=== PATIENT | female | born 1995 | race Caucasian/White ===

== ENCOUNTER → 2020-07-14 15:22 | Outpatient (CLI) | payer SELFPAY | PROVIDERS: Referring Provider Obstetrics & Gynecology; Visit Provider Obstetrics & Gynecology | DX: Z34.90 Encounter for supervision of normal pregnancy, unspecified, unspecified trimester (principal) | CPT/HCPCS: 36415; 84702 ==

== ENCOUNTER → 2020-07-20 14:33 | Outpatient (CLI) | payer MEDICAID, SELFPAY ==
--- NOTE | 2020-07-20 14:36 | US_ITS ---
STUDY: FIRST TRIMESTER OBSTETRICAL ULTRASOUND REASON FOR EXAM: Female, 25 years old INITIAL ULTRASOUND -- DATING LMP: 05/18/2020. TECHNIQUE: Transvaginal TECHNICAL QUALITY: Adequate. PRIOR ULTRASOUND: None. FINDINGS: There is visualization of a single gestational sac in a normal intrauterine position. There is a visualized yolk sac. The yolk sac measures 4.2 mm. The placenta is non-visualized. There is visualization of a live embryo. The crown-rump length (CRL) measures 2.68 cm, indicating an estimated gestational age (EGA) of 9 weeks, 1 days. There is demonstrated cardiac activity with a heart rate of 169 bpm. The estimated gestation age (EGA) by LMP is 9 weeks, 0 days. The estimated date of delivery (LATOSHA) by LMP is 02/22/2021. The estimated gestation age (EGA) by US is 9 weeks, 1 days. The estimated date of delivery (LATOSHA) by US is 02/23/2021. The uterus measures 11.4 cm x 9.2 cm x 7 cm. There is a 2 cm x 2 cm by 1.1 cm subchorionic hematoma. There is no demonstrated uterine fibroid. The cervix is closed. The right ovary measures 4.3 cm x 4.4 cm x 2.5 cm. There is a 1.8 cm x 2.1 cm x 1.7 cm right ovarian cyst. There is no visualized right adnexal mass or complex lesion. The left ovary measures 7.2 cm x 6.3 cm x 5.3 cm. There is a 4.7 cm x 5.9 cm x 4.6 cm ovarian cyst. There is no visualized left adnexal mass or complex lesion. There is minimal fluid in the cul de sac. US/Init OB < 14Wks US IMPRESSION: Single live intrauterine gestation with a mean gestational age of 9 weeks and 1 day. Small subchorionic hematoma. Bilateral ovarian cysts more prominent on the left side. Electronically Signed: Reji Eastman, at 13:58 EDT , Service support ,
== END ==
PROVIDERS: Referring Provider Nurse Practitioner Women's Health; Visit Provider Nurse Practitioner Women's Health
DX: Z34.90 Encounter for supervision of normal pregnancy, unspecified, unspecified trimester (principal)
CPT/HCPCS: 76801

== ENCOUNTER → 2020-07-27 16:23 | Outpatient (CLI) | payer MEDICAID, SELFPAY ==
[2020-07-27 10:29] VITALS: BMI 32.1
[2020-07-27 17:14] LABS: Amphetamine Urine VISTA NEGATIVE (<1000 ng/mL); Barbiturate Urine VISTA NEGATIVE (< 200 ng/mL); Benzodiazepine Urine VISTA NEGATIVE (< 200 ng/mL); Cocaine Urine VISTA NEGATIVE (< 300 ng/mL); Ecstacy Urine VISTA NEGATIVE (< 500 ng/mL); Methadone Urine VISTA NEGATIVE (< 300 ng/mL); PCP Urine VISTA NEGATIVE (< 25 ng/mL); THC Urine VISTA NEGATIVE (< 50 ng/mL); Vista UDS pH Range 6
[2020-07-30 03:06] LABS: Chlamydia By Nucleic Acid AMP Negative (Negative)
[2020-07-30 06:27] LABS: Gonococcus By Nucleic Acid AMP Negative (Negative)
[2020-08-01 10:35] LABS: HPV Reflexed? NOT INDICATED
== END ==
PROVIDERS: Visit Provider Obstetrics & Gynecology
DX: Z34.00 Encounter for supervision of normal first pregnancy, unspecified trimester (principal)
CPT/HCPCS: 80307; 87086; 87088; 87491; 87591; 88175; G0145

== ENCOUNTER → 2020-08-25 14:49 | Outpatient (CLI) | payer MEDICAID, SELFPAY ==
[2020-08-23 14:01] VITALS: BMI 31.8
[2020-08-25 15:27] LABS: Absolute Lymphocyte Count 1.31 X10^3/uL (0.83-4.51); Absolute Neutrophil Count 4.4 X10^3/uL (2.0-7.7); Basophil# 0.01 X10^3/uL; Basophil% 0.2 % (0-1); Eosinophil# 0.07 X10^3/uL; Eosinophils% 1.1 % (0-5); Hemoglobin 10.2 g/dL (12.0-15.0); Lymphocyte # 1.31 X10^3/ul (4.0); Lymphocyte % 21.1 % (19-41); Mean Corp Hgb Conc 32.9 g/dL (32-36); Mean Corpuscular Hgb 28.7 pg (27.0-32.0); Mean Corpuscular Volume 87.3 fL (81-99); Mean Platelet Vol. 10.3 fl (6.2-12.0); Monocyte# 0.39 X10^3/uL; Monocyte% 6.3 % (0-10); NRBC Flagged by Analyzer 0 % (0-5); Neutrophil % 70.8 % (47-70); Platelet Count 225 K/mm3 (150-450); Red Blood Count 3.55 M/mm3 (4.2-5.4); White Blood Count 6.2 K/mm3 (4.4-11.0)
[2020-08-25 15:42] LABS: Glucose Challenge Gest 1H 50g 91 mg/dL (70-140)
[2020-08-25 17:26] LABS: NATERA MAILED SPECIMEN
[2020-08-26 05:07] LABS: Rapid Plasmin Reagin (RPR) NONREACTIVE (NONREACTIVE)
[2020-08-27 13:39] LABS: HIV - WCH Non-Reactive (Nonreactive); Hepatitis B Surface Antigen Non-Reactive (Nonreactive); Hepatitis C Antibody Non-Reactive (Nonreactive)
== END ==
PROVIDERS: Referring Provider Obstetrics & Gynecology; Visit Provider Obstetrics & Gynecology
DX: Z34.81 Encounter for supervision of other normal pregnancy, first trimester (principal); Z31.430 Encounter of female for testing for genetic disease carrier status for procreative management
CPT/HCPCS: 36415; 82950; 85025; 86592; 86703; 86803; 86850; 86900; 86901; 87340

== ENCOUNTER → 2020-09-20 14:58 | Outpatient (CLI) | payer MEDICAID, SELFPAY ==
[2020-09-20 14:37] VITALS: BMI 33.0
== END ==
PROVIDERS: Referring Provider Obstetrics & Gynecology; Visit Provider Obstetrics & Gynecology
DX: Z36.9 Encounter for antenatal screening, unspecified (principal)
CPT/HCPCS: 36415

== ENCOUNTER → 2020-12-01 13:00 | Outpatient (CLI) | payer MEDICAID, SELFPAY ==
[2020-11-19 15:20] VITALS: BMI 35.4
[2020-12-01 13:11] LABS: Absolute Lymphocyte Count 1.35 X10^3/uL (0.83-4.51); Absolute Neutrophil Count 6.2 X10^3/uL (2.0-7.7); Basophil# 0.02 X10^3/uL; Basophil% 0.2 % (0-1); Eosinophils% 1.2 % (0-5); Hematocrit 30.8 % (37-47); Lymphocyte # 1.35 X10^3/ul (4.0); Lymphocyte % 16.5 % (19-41); Mean Corp Hgb Conc 32.5 g/dL (32-36); Mean Corpuscular Hgb 28.1 pg (27.0-32.0); Mean Corpuscular Volume 86.5 fL (81-99); Mean Platelet Vol. 9.8 fl (6.2-12.0); Monocyte# 0.46 X10^3/uL; Monocyte% 5.6 % (0-10); NRBC Flagged by Analyzer 0 % (0-5); Neutrophil # 6.16 X10^3/uL (2.7-7.7); Neutrophil % 75.4 % (47-70); Platelet Count 207 K/mm3 (150-450); RBC Distribution Width CV 13.2 % (11.6-14.6); Red Blood Count 3.56 M/mm3 (4.2-5.4); White Blood Count 8.2 K/mm3 (4.4-11.0)
[2020-12-01 13:22] LABS: Glucose Challenge Gest 1H 50g 129 mg/dL (70-140)
== END ==
PROVIDERS: Referring Provider Obstetrics & Gynecology; Visit Provider Obstetrics & Gynecology
DX: Z13.1 Encounter for screening for diabetes mellitus (principal); Z34.90 Encounter for supervision of normal pregnancy, unspecified, unspecified trimester
CPT/HCPCS: 36415; 82950; 85025

== ENCOUNTER → 2021-01-28 12:29 | Outpatient (CLI) | payer MEDICAID, SELFPAY ==
[2021-01-14 13:44] VITALS: BMI 35.6
--- NOTE | 2021-01-28 12:30 | US_ITS ---
STUDY: SECOND AND THIRD TRIMESTER OBSTETRICAL ULTRASOUND REASON FOR EXAM: Female, 25 years old growth LMP: 05/18/2020. TECHNIQUE: Transabdominal TECHNICAL QUALITY: Adequate. PRIOR ULTRASOUND: Comparison is made with prior study dated 05/20/2020. FINDINGS: There is a single intrauterine fetus. The fetus is in a cephalic presentation. There is demonstrated cardiac activity with a heart rate of 132 bpm. There is a normal amniotic fluid volume. The largest amniotic fluid pocket measures 4.4 cm. The amniotic fluid index (WESLEY) is 11.3 cm. The placenta is fundal in location. There are Grade 1 placental changes. The adnexal regions are not visualized. BIOMETRY: BPD: 9.65 cm: 39 weeks, 3 days HC: 33.92 cm: 38 weeks, 6 days AC: 34.49 cm: 38 weeks, 2 days FL: 7.26 cm: 36 weeks, 1 days CI: 85% FL/BPD: 75% FL/HC: FL/AC: 21% HC/AC: 0.98 age by current US: 38 weeks, 2 days. LATOSHA by current US: 02/09/2021. Estimated weight: 3490 grams, +/- 524 grams, 93 %. age by prior US: 36 weeks, 2 days. LATOSHA by prior US: 02/23/2021. Age by LMP: 36 weeks, 3 days. LATOSHA by LMP: 02/22/2021. The left ovary measures 6.5 cm x 3.9 cm within it, there is a 3.9 cm x 3.7 cm x 3.1 cm cyst. Along the cephalic aspect of the cystic nodule there is a 3.9 cm x 3.6 cm x 3 cm solid nodule. US/OB Limited With Biometrics IMPRESSION: Single live uterine gestation with a mean gestational age of 36 weeks and 2 days. The measurements obtained today follow-up in the upper limits of normal. Electronically Signed: Reji Eastman MD at 8:32 EDT , Service support ,
== END ==
PROVIDERS: Referring Provider Obstetrics & Gynecology; Visit Provider Obstetrics & Gynecology
DX: O99.213 Obesity complicating pregnancy, third trimester (principal); E66.9 Obesity, unspecified; Z3A.33 33 weeks gestation of pregnancy
CPT/HCPCS: 76816; 87081

== ENCOUNTER → 2021-02-25 15:02 | Outpatient (CLI) | payer MEDICAID, SELFPAY ==
[2021-02-25 10:58] VITALS: BMI 35.6
[2021-02-26 11:02] LABS: Rubella IgG Reactive (Nonreactive)
== END ==
PROVIDERS: Referring Provider Obstetrics & Gynecology; Visit Provider Obstetrics & Gynecology
DX: Z34.92 Encounter for supervision of normal pregnancy, unspecified, second trimester (principal); Z3A.19 19 weeks gestation of pregnancy
CPT/HCPCS: 36415; 86762

== ENCOUNTER 2021-02-27 19:00 | Inpatient (IN) | payer MEDICAID, SELFPAY ==
[2021-02-11 14:01] VITALS: BMI 35.6
[2021-02-25 10:58] VITALS: BMI 35.6
[2021-02-27 19:25] VITALS: PULSE 104; TEMP 36.8; O2SAT 99
[2021-02-27 19:28] VITALS: BP 120/69; PULSE 112
[2021-02-27 19:44] LABS: Absolute Lymphocyte Count 1.58 X10^3/uL (0.83-4.51); Absolute Neutrophil Count 7.3 X10^3/uL (2.0-7.7); Basophil# 0.02 X10^3/uL; Basophil% 0.2 % (0-1); Eosinophil# 0.09 X10^3/uL; Eosinophils% 0.9 % (0-5); Hematocrit 34.8 % (37-47); Hemoglobin 11.4 g/dL (12.0-15.0); Lymphocyte # 1.58 X10^3/ul (0.83-4.51); Lymphocyte % 16.1 % (19-41); Mean Corp Hgb Conc 32.8 g/dL (32-36); Mean Corpuscular Hgb 27.9 pg (27.0-32.0); Mean Corpuscular Volume 85.1 fL (81-99); Mean Platelet Vol. 10.6 fl (6.2-12.0); Monocyte# 0.74 X10^3/uL; Monocyte% 7.5 % (0-10); NRBC Flagged by Analyzer 0 % (0-5); Neutrophil # 7.26 X10^3/uL (2.7-7.7); Neutrophil % 73.9 % (47-70); Platelet Count 221 K/mm3 (150-450); RBC Distribution Width CV 13.2 % (11.6-14.6); RBC Distribution Width SD 40.6 fl (35.1-43.9); Red Blood Count 4.09 M/mm3 (4.2-5.4); White Blood Count 9.8 K/mm3 (4.4-11.0)
[2021-02-27] MEDS: miSOPROStol 25 MCG TABLET PO (19:57)
[2021-02-27 19:58] VITALS: BMI 37.3
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
[2021-02-27 22:27] VITALS: BP 115/65; PULSE 91
[2021-02-27 22:28] VITALS: TEMP 36.3
[2021-02-27 23:44] VITALS: PULSE 98; O2SAT 98
[2021-02-28] VITALS (48 sets, daily range): BP systolic 94–138; BP diastolic 51–84; PULSE 74–105; RESP 16; TEMP 36.2–37.4; O2SAT 90–100
[2021-02-28] MEDS: 0.9% Normal Saline Single 100 ML IV.SOLN. INTRA-UTER (00:30)
[2021-02-28] MEDS: Lactated Ringers 500 ML 999 ML IV ×3 (01:20→14:52)
[2021-02-28] MEDS: Lactated Ringers 1,000 ML 50 ML IV (01:51)
[2021-02-28] MEDS: Oxytocin 30 units/NS 500 ml 30 UNITS/500 ML IV.SOLN IV (04:09)
--- NOTE | 2021-02-28 09:50 | PN_ITS ---
Progress Note Patient doing well. FHT Cat I. [place] not tracing well, but ~q2-4min. AROM at this time for clear fluid. Cervix 5//-2. Will continue to titrate pitocin.
[2021-02-28] MEDS: fentaNYL-bupivacaine (epidural) 100 ML BAG EPIDURAL ×3 (10:34→20:18)
[2021-02-28] MEDS: Lactated Ringers 1,000 ML 200 ML IV ×2 (12:59→18:25)
[2021-02-28] MEDS: Mag Hydrox/Al Hydrox/Simeth 30 ML UDC PO (20:42)
[2021-02-28] MEDS: 0.9% Saline Lock 10 ML Syringe IV (21:48)
--- NOTE | 2021-02-28 23:10 | PN_ITS ---
Progress Note Patient now 8 cm with inadequate contractions since 5:30 PM. Cervix noted to be significantly more swollen with extremely thick anterior lip and swelling all extending circumferentially around the cervix. Significant amount of caput and molding of head noted. Offered trial of Benadryl to help with swelling, however patient reports that this causes her to become extremely drowsy and she does not want to risk being drowsy at the time of delivery. Discussed with patient the diagnosis of arrest of dilation typically requires 6 hours of i nadequate contractions with no cervical change, however with worsening caput and molding and worsening cervical swelling would recommend proceeding with C- section at this time. Patient is agreeable with this plan. The risks, benefits, indications, and alternatives to the procedure were discussed with the patient including bleeding, infection, and visceral or vascular injury. Patient voiced understanding and agreed to proceed.
--- NOTE | 2021-02-28 23:13 | EX.PCM.OBRPT ---
Assessment & Plan (1) : QUALIFIERS: Weeks of gestation: 40 weeks Qualified Code(s): Z3A.40 - 40 weeks gestation of COMMENT: NIPT- low risk, carrier- neg , and AFP negative; NL anatomy; Negative GBS (2) Supervision of normal first : QUALIFIERS: Trimester: third trimester Qualified Code(s): Z34.03 - Encounter for supervision of normal first , third trimester COMMENT: PRR (rubella) LATOSHA: 02/22/21 corby Kumari BF: Isreal (3) Bilateral ovarian cysts: COMMENT: repeat growth us at 36 weeks. Noted on initial US. L>R measuring up to 5.9cm.; left ovarian cyst that needs a fu us 6 weeks pp (4) Obesity affecting : QUALIFIERS: Trimester: third trimester Qualified Code(s): O99.213 - Obesity complicating , third trimester COMMENT: BMI 32 at NOB. Early 1h GTT. (5) History of tetanus, diphtheria, and acellular pertussis booster vaccination (Tdap): COMMENT: 12/01/20 (6) Anemia affecting : QUALIFIERS: Trimester: third trimester Qualified Code(s): O99.013 - Anemia complicating , third trimester COMMENT: Fe daily (7) 33 weeks gestation of : COMMENT: COVID test ordered 01/05/21 ([facility] 02/18 at 2:30pm) (8) Encounter for induction of labor: (9) delivery delivered: Maternal Data Information LATOSHA Calculator Estimated Delivery Date Method Current WG Current Estimate 02/22/21 LMP (Uncertain) 41w 0d Other Estimates 02/21/21 Ultrasound #1 41w 1d Details Operative Information Date of Procedure: 02/28/21 Pre-Operative Diagnosis: Term , induction of labor for postdates, arrest of dilation, ovarian cyst Post-Operative Diagnosis: Same, cephalopelvic disproportion Indications for : Sec. Arrest of Dilitation Indications Narrative: 25-year-old G1, P0 at 40 weeks gestation admitted for induction of labor for postdates. Patient 8 cm with an adequate contractions for 5-1/2 hours with worsening cervical swelling and significant caput and molding noted. Offered trial of Benadryl to help with swelling, however patient reports that this causes her to become extremely drowsy and she does not want to risk being drowsy at the time of delivery. Discussed with patient the diagnosis of arrest of dilation typically requires 6 hours of inadequate contractions with no cervical change, however with worsening caput and molding and worsening cervical swelling would recommend proceeding with at this time Classification: JOHN Procedure Type: low transverse (With left ovarian cystectomy) floor winder #1: Yolanda Granda Type of Anesthesia: Epidural Antibiotic Given: Ancef 2 grams IV x1 and Zithromax 500 mg/5 mL X1 Drain: Mata to straight drain Estimated Blood Loss: 800 Fluids Replaced: 1200 Findings Description of Procedure: The patient is a G1, P0 at 40 weeks who presented for primary . Spinal anesthesia was placed without difficulty. Mata catheter was placed. The patient was placed in the dorsal supine position with leftward tilt. Patient was prepped and draped in the normal sterile fashion. Pfannenstiel skin incision was made with the scalpel and carried through to the underlying layer of fascia with the scalpel. Fascia was nicked in the midline and the incision extended laterally. The rectus bellies were dissected off superiorly and inferiorly with out complication both sharply and bluntly. The peritoneum was entered digitally. The incision was stretched and a low transverse uterine incision was made with the scalpel. The 's head was delivered atraumatically followed by the anterior and posterior shoulders without complication the rest of the delivered. The cord was clamped and cut and the infant was handed off to awaiting nurse. The placenta was delivered spontaneously immediately following and was noted to be intact and have a three-vessel cord. The uterus was exteriorized cleared of all clots and debris, and the incision was closed in a double layer closure using #1 Monocryl. The right ovary and fallopian tubes were noted to be within normal limits. The ovarian cyst was noted on the left ovary. The Bovie was used to make an incision in the ovarian stroma. The cyst wall was dissected from the ovarian stroma with a combination of blunt and sharp dissection. Hemostasis was achieved with the Bovie. Madeleine was placed in the ovarian cavity and hemostasis was noted. The uterus was returned to the maternal abdomen and gutters were cleared of all clots and debris. The peritoneum was closed with 3-0 Monocryl in a running fashion. Gloves were changed prior to fascial closure. Fascia was closed with 0 PDS in a running fashion. Subcutaneous tissue was copiously irrigated and the skin was closed with 3-0 Monocryl in a subcuticular fashion. Mepilex dressing was applied without complication. Patient was taken to recovery in stable condition. It was discussed with the patient that based on the clinical information obtained during this encounter, combined with her history, I would recommend a in future pregnancies unless her next baby is significantly smaller Presentation: Positive for Vertex and APRIL Amniotic Membrane Rupture Type: Artificial Amniotic Fluid Description: Clear Placenta Disposition: [facility] Specimen(s) Sent to Pathology: Left ovarian cyst wall Cord Vessel Description: 3 Vessels Cord Entanglement: None A Gender: Male Delayed Cord Clamping: Yes Complications Risks of Surgery Discussed w/Patient: Bleeding, Anesthesia Risks, Infection and Injury to surrounding structure(s) including bowel and bladder Complications: None apparent Multi Select Codes Urinary/Genital Urinary/Genital CPT Codes: 03369 Ovarian cystectomy laparotomy and 47256 delivery+ Care([facility])
--- NOTE | 2021-02-28 23:19 | PCM.DC ---
Discharge Instructions Diet Discharge Diet: No restrictions Activity Discharge Activity: May Not Drive (for 2 weeks or while taking narcotic pain meds.), May Shower and May Take a Tub Bath (in 7 days.) May resume sexual activity in: 4-6 weeks Lifting Restrictions: 20 pounds Additional Activity Instructions:: Nothing in the vagina for 4-6 weeks. You may return to work/school in 6 weeks. Dressing / Incision Call your doctor if your incision/area has: Continuous Slow Oozing, Sudden Increased Bleeding, Increased Pain/ Swelling, Increased Redness and Foul Smelling Discharge Call your doctor if you observe: Fever of 101 or Higher Suture Line Care: Avoid Pulling/Pushing and Avoid Pinching/Bending Follow Up Care Test Results: Test results from this visit will be discussed in further detail at your follow-up appointment, if applicable. Discharge Plan Admission Admit Date/Time: 02/27/21 19:00 Primary Reason for Your Visit: Induction of labor Attending Provider: Miroslava Gamboa Primary Care Provider: David PhysicianRochelle Primary Instructions Patient Instructions: After a Discharge Orders/Prescriptions Prescriptions: New naproxen 250 MG tablet 250 - 500 mg PO Q8H PRN PRN (Reason: MILD PAIN) Qty: 30 RF: 1 oxycodone 5 mg capsule 5 mg PO Q6H PRN (Reason: pain) 7 Days Qty: 15 RF: 0 Continued ferrous sulfate [Iron (ferrous sulfate)] 325 mg (65 mg iron) Tablet 325 mg PO RF: 0 [id number]-FA 1 mg Tablet 1 tab PO RF: 0 (DME) breast pump Device See Rx Instructions .ROUTE .MEDSUPPLY Qty: 1 RF: 0 Referrals / Follow Up: Care Physician,No Primary [Primary Care Provider] -
[2021-02-28] MEDS: Sodium Citrate/Citric Acid 30 ML UDC PO (23:26)
[2021-02-28] MEDS: Cefazolin 2 GM in 0.9% Normal Saline 100 ML IV (23:36)
[2021-03-01] VITALS (21 sets, daily range): BP systolic 92–122; BP diastolic 40–70; PULSE 71–111; RESP 16–18; TEMP 36.2–37.1; O2SAT 94–99
[2021-03-01] MEDS: Oxytocin 30 units/NS 500 ml 30 UNITS/500 ML IV.SOLN 167 UNITS IV (01:00)
[2021-03-01] MEDS: Ketorolac 30 MG/ML Syringe IV ×3 (01:47→14:07)
[2021-03-01] MEDS: Acetaminophen 500 MG Tablet 1000 MG PO ×4 (03:07→20:20)
--- NOTE | 2021-03-01 03:13 | POC_PTH ---
PATIENT: NEIDA WILHELM LOC: [facility] U#:[id number] AGE/SX: 25/F ROOM: WP004 RE02/27/[address]: Dr. Miroslava Gamboa MD : 1995 BED: 1 DIS: 03/02/2021 SPEC #: [id number] RECD: 03/01/21 08:42 STATUS: NAINA ALFREDO #: [id number] INDU: 03/01/21 03:[address]: Miroslava Gamboa DEPT: SURGICAL PATHOLOGY RECD BY: Arabella Frye ENTERED: 03/01/21 08:42 SP TYPE: PROD CONC OTHR DR: No Primary Care Phys Tissues: Product of conception, NOS Procedures: Surgery Specimen Level IV HEADER OPERATION: Left ovarian cystectomy PRE-OP DIAGNOSIS: Ovarian cyst TISSUE SUBMITTED: Ovarian cyst MICROSCOPIC DIAGNOSIS Left ovarian cyst, cystectomy: Consistent with mature cystic teratoma (dermoid cyst). SJ:mata 03/02/2021 MICROSCOPIC DESCRIPTION Slides are reviewed. GROSS DESCRIPTION Received is one container labeled with the patient's name and not further designated. The specimen consists of multiple irregular fragments of padron-pink soft tissue that in aggregate measure 4 x 3 x 0.7 cm. The specimen appears to consist of portion of a cyst wall. The pieces are serially sectioned. The entire specimen is submitted in three cassettes. / NIKOLE:mata 03/01/21 TC:1 CPT: 89795
[2021-03-01 03:35] LABS: Pathology Specimen OB SEE PATHOLOGY REPORT
[2021-03-01] MEDS: 0.9% Saline Lock 10 ML Syringe IV (04:28)
[2021-03-01] MEDS: Lactated Ringers 1,000 ML 999 ML IV (05:27)
--- NOTE | 2021-03-01 07:50 | PCM.PN.OB ---
Subjective Subjective Patient doing well without complaints. Tolerating PO. Ambulating and voiding without difficulty. feeding well. Denies chest pain, shortness of breath, calf pain/swelling, fevers, chills, lightheadedness. Objective Data Objective Data Vital Signs: Vital Signs Temp Pulse Resp BP Pulse Ox 98.1 F 86 16 100/60 95 03/01/21 06:04 03/01/21 05:10 03/01/21 07:30 03/01/21 06:04 03/01/21 07:30 Oxygen Delivery Method Room Air Weight: 204 lb Body Mass Index (BMI) 37.3 Intake & Output: Intake and Output for Last 24 Hours 02/27/21 02/28/21 03/01/21 23:59 23:59 23:59 Intake Total 5477.01 / 5477.01 2931.1 / 2931.1 Output Total 1900 / 1900 1200 / 1200 Balance 3577.01 / 3577.01 1731.1 / 1731.1 Lab / Micro Data Result Diagrams: 02/27/21 19:25 Micro: Microbiology 02/27/21 19:55 Mucosa - Nose SARS-CoV-2 Antigen (Rapid) - Final Physical Exam Const alert and oriented x3 HEENT normocephalic Eyes PERRL Neck full ROM Resp normal respiratory effort GI soft to palpation GI Narrative: FF below U. Dressing dry and intact Palpation: tender other (appropriately) Assessment & Plan (1) delivery delivered: PLAN: s/p LTCS PPD # 1 1. routine post care 2. breast feeding- support given 3. rh positive 4. rubella immune
[2021-03-01] MEDS: Senna/Docusate Sodium 1 Tablet PO (09:08)
[2021-03-01] MEDS: Enoxaparin 40 MG/0.4 ML Syringe SC (14:08)
[2021-03-01] MEDS: Naproxen 250 MG Tablet 500 MG PO (20:20)
[2021-03-01] MEDS: oxyCODONE 5 MG Tablet PO (23:17)
[2021-03-02 00:12] VITALS: BP 104/63; PULSE 96; RESP 17; TEMP 36.8; O2SAT 98
[2021-03-02] MEDS: Acetaminophen 500 MG Tablet 1000 MG PO ×2 (03:26→09:17)
[2021-03-02] MEDS: Naproxen 250 MG Tablet 500 MG PO (03:27)
[2021-03-02 03:35] VITALS: BP 128/64; PULSE 91; RESP 16; TEMP 36.3; O2SAT 99
[2021-03-02 05:32] LABS: Hemoglobin 9.1 g/dL (12.0-15.0); Mean Corp Hgb Conc 32.5 g/dL (32-36); Mean Corpuscular Hgb 27.9 pg (27.0-32.0); Mean Corpuscular Volume 85.9 fL (81-99); Mean Platelet Vol. 10.5 fl (6.2-12.0); Platelet Count 191 K/mm3 (150-450); RBC Distribution Width CV 13.4 % (11.6-14.6); RBC Distribution Width SD 42.1 fl (35.1-43.9); Red Blood Count 3.26 M/mm3 (4.2-5.4); White Blood Count 14.8 K/mm3 (4.4-11.0)
--- NOTE | 2021-03-02 07:49 | PCM.PN.OB ---
Subjective Subjective Patient doing well without complaints. Tolerating PO. Ambulating and voiding without difficulty. feeding well. Denies chest pain, shortness of breath, calf pain/swelling, fevers, chills, lightheadedness. Objective Data Objective Data Vital Signs: Vital Signs Temp Pulse Resp BP Pulse Ox 97.4 F L 91 16 128/64 H 99 03/02/21 03:35 03/02/21 03:35 03/02/21 03:35 03/02/21 03:35 03/02/21 03:35 Oxygen Delivery Method Room Air Weight: 204 lb Body Mass Index (BMI) 37.3 Intake & Output: Intake and Output for Last 24 Hours 02/28/21 03/01/21 03/02/21 23:59 23:59 23:59 Intake Total 5477.01 / 5477.01 3365.0 / 3365.0 Output Total 1900 / 1900 2700 / 2700 Balance 3577.01 / 3577.01 665.0 / 665.0 Lab / Micro Data Result Diagrams: 03/02/21 05:23 Labs: Laboratory Results - last 24 hr 03/02/21 05:23 WBC 14.8 H RBC 3.26 L Hgb 9.1 L Hct 28.0 L MCV 85.9 MCH 27.9 MCHC 32.5 RDW Std Deviation 42.1 RDW Coeff of [place] 13.4 Plt Count 191 MPV 10.5 Micro: Microbiology 02/27/21 19:55 Mucosa - Nose SARS-CoV-2 Antigen (Rapid) - Final Physical Exam Const alert and oriented x3 HEENT normocephalic Eyes PERRL Neck full ROM Resp normal respiratory effort GI soft to palpation GI Narrative: FF below U. Dressing dry and intact Palpation: tender other (appropriately) Assessment & Plan (1) delivery delivered: PLAN: s/p LTCS PPD # 2 1. routine post care 2. breast feeding- support given 3. rh positive 4. rubella immune 5. home today
[2021-03-02 07:53] VITALS: BP 101/58; PULSE 87; RESP 16; TEMP 36.5; O2SAT 97
[2021-03-02] MEDS: oxyCODONE 5 MG Tablet PO (09:09)
--- NOTE | 2021-03-07 07:45 | PCM.DC.SUM ---
Providers Date of Admission: 02/27/21 Primary Care Physician: Rochelle Primary Care Phys Reason For Visit: PRIMARY CSECTION Diagnosis Discharge Diagnosis (1) delivery delivered: Status: Resolved Code(s): O82 - Encounter for delivery without indication Medications at Discharge Home Medications breast pump #1 each 01/14/21 ferrous sulfate [Iron (ferrous sulfate)] 325 mg PO 02/27/21 tyddauep-yot-Md-FA 1 tab PO 02/27/21 naproxen 250 - 500 mg PO Q8H PRN PRN #30 tab 02/28/21 oxycodone 5 mg PO Q6H PRN 7 Days #15 cap 02/28/21 Hospital Course Operations section Summary of Care Provided Hospital Course: 25 yr old Grav 2/0 c section with normal hospital course. No complications. Discharged day 3 normal postop care, ambulating, reg diet, pain controlled. ABG / Lab / Microbiology Data Result Diagrams: 03/02/21 05:23 Microbiology: Microbiology 02/27/21 19:55 Mucosa - Nose SARS-CoV-2 Antigen (Rapid) - Final D/C Instructions Discharge Diet: No restrictions May resume sexual activity in: 4-6 weeks Additional Activity Instructions: Nothing in the vagina for 4-6 weeks. You may return to work/school in 6 weeks. Call your doctor if your incision/area has: Continuous Slow Oozing, Sudden Increased Bleeding, Increased Pain/ Swelling, Increased Redness and Foul Smelling Discharge Call your doctor if you observe: Fever of 101 or Higher Suture Line Care: Avoid Pulling/Pushing and Avoid Pinching/Bending Please Follow Up With: Miroslava Gamboa MD Meaningful Use Info Meaningful Use Diagnoses (Choose all that apply): None applicable Discharge Plan Admission Admit Date/Time: 02/27/21 19:00 Primary Reason for Your Visit: Induction of labor Attending Provider: Miroslava Gamboa Primary Care Provider: Care Physician,No Primary Instructions Patient Instructions: After a Discharge Orders/Prescriptions Prescriptions: New naproxen 250 MG tablet 250 - 500 mg PO Q8H PRN PRN (Reason: MILD PAIN) Qty: 30 RF: 1 oxycodone 5 mg capsule 5 mg PO Q6H PRN (Reason: pain) 7 Days Qty: 15 RF: 0 Continued ferrous sulfate [Iron (ferrous sulfate)] 325 mg (65 mg iron) Tablet 325 mg PO RF: 0 fpbqrqmo-lib-Ha-FA 1 mg Tablet 1 tab PO RF: 0 (DME) breast pump Device See Rx Instructions .ROUTE .MEDSUPPLY Qty: 1 RF: 0 Referrals / Follow Up: Care Physician,No Primary [Primary Care Provider] - Disposition Disposition (needs filled in before D/C Order can be placed): Home, self care
== END 2021-03-02 11:26 | disposition home or self-care (01) | DRG 540 ==
PROVIDERS: Admitting Provider Obstetrics & Gynecology; Visit Provider Obstetrics & Gynecology
DX: O62.0 Primary inadequate contractions (principal); O48.0 Post-term pregnancy; O99.02 Anemia complicating childbirth; D64.9 Anemia, unspecified; Z3A.40 40 weeks gestation of pregnancy; Z87.891 Personal history of nicotine dependence; Z37.0 Single live birth; O34.83 Maternal care for other abnormalities of pelvic organs, third trimester; N83.202 Unspecified ovarian cyst, left side; O33.9 Maternal care for disproportion, unspecified
CPT/HCPCS: 36415; 59025; 59050; 85025; 85027; 86762; 86850; 86900; 86901; 87426; 88305; 99218; J7120; A4216; G0378; J2405

== ENCOUNTER → 2022-03-21 | Outpatient (CLI) | payer MEDICAID, SELFPAY ==
[2022-03-23 06:08] LABS: Chlamydia By Nucleic Acid AMP Negative (Negative)
[2022-03-23 12:39] LABS: Gonococcus By Nucleic Acid AMP Negative (Negative)
[2022-03-23 15:41] LABS: HPV Reflexed? NOT INDICATED
== END | disposition home or self-care (01) ==
LOC: LABSPEC 10:26
PROVIDERS: Referring Provider Obstetrics & Gynecology; Visit Provider Obstetrics & Gynecology
DX: Z34.90 Encounter for supervision of normal pregnancy, unspecified, unspecified trimester (principal)
CPT/HCPCS: 87491; 87591; 88175; G0145

== ENCOUNTER → 2022-04-17 | Outpatient (CLI) | payer MEDICAID, SELFPAY ==
[2022-04-17 12:06] LABS: Absolute Lymphocyte Count 1.89 X10^3/uL (0.83-4.51); Basophil# 0.02 X10^3/uL; Basophil% 0.3 % (0-1); Eosinophil# 0.09 X10^3/uL; Eosinophils% 1.4 % (0-5); Hematocrit 34.3 % (37-47); Hemoglobin 11.6 g/dL (12.0-15.0); Lymphocyte # 1.89 X10^3/ul (0.83-4.51); Lymphocyte % 29.3 % (19-41); Mean Corp Hgb Conc 33.8 g/dL (32-36); Mean Corpuscular Hgb 28.8 pg (27.0-32.0); Mean Corpuscular Volume 85.1 fL (81-99); Mean Platelet Vol. 10.1 fl (6.2-12.0); Monocyte% 6.2 % (0-10); NRBC Flagged by Analyzer 0 % (0-5); Neutrophil # 4.02 X10^3/uL (2.7-7.7); Neutrophil % 62.3 % (47-70); Platelet Count 239 K/mm3 (150-450); RBC Distribution Width CV 12.1 % (11.6-14.6); RBC Distribution Width SD 37.1 fl (35.1-43.9); Red Blood Count 4.03 M/mm3 (4.2-5.4); White Blood Count 6.5 K/mm3 (4.4-11.0)
[2022-04-17 12:45] LABS: NATERA MAILED SPECIMEN
[2022-04-17 12:48] LABS: Glucose Challenge Gest 1H 50g 92 mg/dL (70-140); Thyroid Stim Hormone (TSH) 4.37 uIU/mL (0.358-3.74)
[2022-04-17 13:09] LABS: HIV - WCH Non-Reactive (Nonreactive); Hepatitis B Surface Antigen Non-Reactive (Nonreactive); Hepatitis C Antibody Non-Reactive (Nonreactive); Rubella IgG Reactive (Nonreactive); Syphilis Antibodies Non-reactive
== END | disposition home or self-care (01) ==
LOC: PAVLAB 11:38
PROVIDERS: Referring Provider Obstetrics & Gynecology; Visit Provider Obstetrics & Gynecology
DX: Z34.81 Encounter for supervision of other normal pregnancy, first trimester (principal); Z34.90 Encounter for supervision of normal pregnancy, unspecified, unspecified trimester
CPT/HCPCS: 36415; 82950; 84443; 85025; 86703; 86762; 86780; 86803; 86850; 86900; 86901; 87340

== ENCOUNTER → 2022-05-16 | Outpatient (CLI) | payer MEDICAID, SELFPAY ==
[2022-05-16 13:10] LABS: Amphetamine Urine VISTA NEGATIVE (<1000 ng/mL); Barbiturate Urine VISTA NEGATIVE (< 200 ng/mL); Benzodiazepine Urine VISTA NEGATIVE (< 200 ng/mL); Cocaine Urine VISTA NEGATIVE (< 300 ng/mL); Ecstacy Urine VISTA NEGATIVE (< 500 ng/mL); Methadone Urine VISTA NEGATIVE (< 300 ng/mL); PCP Urine VISTA NEGATIVE (< 25 ng/mL); THC Urine VISTA NEGATIVE (< 50 ng/mL); Vista UDS pH Range 6
== END | disposition home or self-care (01) ==
LOC: LABSPEC 12:35
PROVIDERS: PCP Registered Nurse; Referring Provider Obstetrics & Gynecology; Visit Provider Obstetrics & Gynecology
DX: Z34.90 Encounter for supervision of normal pregnancy, unspecified, unspecified trimester (principal)
CPT/HCPCS: 80307; 87086; 87088

== ENCOUNTER → 2022-06-13 | Outpatient (CLI) | payer MEDICAID, SELFPAY ==
[2022-06-13 14:45] LABS: T4 Free Direct 1.06 ng/dL (0.76-1.46); Thyroid Stim Hormone (TSH) 1.29 uIU/mL (0.358-3.74)
[2022-06-15 13:49] LABS: Thyroid Peroxidase AB 14 IU/mL (0-34)
== END | disposition home or self-care (01) ==
LOC: PAVLAB 13:53
PROVIDERS: PCP Registered Nurse; Referring Provider Internal Medicine Endocrinology, Diabetes & Metabolism; Visit Provider Internal Medicine Endocrinology, Diabetes & Metabolism
DX: O99.280 Endocrine, nutritional and metabolic diseases complicating pregnancy, unspecified trimester (principal); E03.9 Hypothyroidism, unspecified; Z3A.00 Weeks of gestation of pregnancy not specified
CPT/HCPCS: 36415; 84439; 84443; 86376

== ENCOUNTER → 2022-08-03 | Outpatient (CLI) | payer MEDICAID, SELFPAY ==
[2022-08-03 12:57] LABS: Absolute Lymphocyte Count 1.11 X10^3/uL (0.83-4.51); Basophil# 0.01 X10^3/uL; Basophil% 0.2 % (0-1); Eosinophil# 0.06 X10^3/uL; Eosinophils% 0.9 % (0-5); Hematocrit 30.6 % (37-47); Hemoglobin 10.5 g/dL (12.0-15.0); Lymphocyte # 1.11 X10^3/ul (0.83-4.51); Lymphocyte % 16.8 % (19-41); Mean Corp Hgb Conc 34.3 g/dL (32-36); Mean Corpuscular Hgb 28.6 pg (27.0-32.0); Mean Corpuscular Volume 83.4 fL (81-99); Mean Platelet Vol. 10.1 fl (6.2-12.0); Monocyte# 0.37 X10^3/uL; Monocyte% 5.6 % (0-10); NRBC Flagged by Analyzer 0 % (0-5); Neutrophil % 75.9 % (47-70); Platelet Count 215 K/mm3 (150-450); RBC Distribution Width CV 12.8 % (11.6-14.6); RBC Distribution Width SD 38.9 fl (35.1-43.9); Red Blood Count 3.67 M/mm3 (4.2-5.4); White Blood Count 6.6 K/mm3 (4.4-11.0)
[2022-08-03 13:48] LABS: Glucose Challenge Gest 1H 50g 137 mg/dL (70-140)
[2022-08-03 14:16] LABS: T4 Free Direct 1.16 ng/dL (0.76-1.46); Thyroid Stim Hormone (TSH) 0.85 uIU/mL (0.358-3.74)
== END | disposition home or self-care (01) ==
LOC: LAB 12:31
PROVIDERS: Internal Medicine Endocrinology, Diabetes & Metabolism; PCP Registered Nurse; Visit Provider Obstetrics & Gynecology
DX: O99.280 Endocrine, nutritional and metabolic diseases complicating pregnancy, unspecified trimester (principal); E03.9 Hypothyroidism, unspecified; Z3A.00 Weeks of gestation of pregnancy not specified
CPT/HCPCS: 36415; 82950; 84439; 84443; 85025

== ENCOUNTER → 2022-08-08 | Outpatient (CLI) | payer MEDICAID, SELFPAY ==
[2022-08-08 09:29] LABS: Glucose GTT-Gestation. Fasting 79 mg/dL (<105)
[2022-08-08 09:56] LABS: Glucose GTT-Gestational 1 Hr 161 mg/dL (<190)
[2022-08-08 11:08] LABS: Glucose GTT-Gestational 2 Hr 139 mg/dL (<165)
[2022-08-08 11:43] LABS: Glucose GTT-Gestational 3 Hr 85 L (<145)
== END | disposition home or self-care (01) ==
LOC: LAB 07:58
PROVIDERS: PCP Registered Nurse; Referring Provider Obstetrics & Gynecology; Visit Provider Obstetrics & Gynecology
DX: O99.810 Abnormal glucose complicating pregnancy (principal); Z3A.00 Weeks of gestation of pregnancy not specified
CPT/HCPCS: 36415; 82951; 82952

== ENCOUNTER → 2022-09-29 | Outpatient (CLI) | payer MEDICAID, SELFPAY ==
[2022-09-29 19:28] LABS: Group B Strep DNA By PCR Negative (Negative); Internal Control PASS; Probe Check PASS; Specimen Processing Control PASS
== END | disposition home or self-care (01) ==
LOC: LABSPEC 16:41
PROVIDERS: PCP Registered Nurse; Referring Provider Obstetrics & Gynecology; Visit Provider Obstetrics & Gynecology
DX: Z34.90 Encounter for supervision of normal pregnancy, unspecified, unspecified trimester (principal)
CPT/HCPCS: 87081; 87653

== ENCOUNTER → 2022-10-13 | Outpatient (CLI) | payer MEDICAID, SELFPAY ==
--- NOTE | 2022-10-13 08:35 | US_ITS ---
STUDY: SECOND AND THIRD TRIMESTER OBSTETRICAL ULTRASOUND REASON FOR EXAM: Female, 27 years old . growth. LMP: 01/17/2022. TECHNIQUE: Transabdominal TECHNICAL QUALITY: Adequate. PRIOR ULTRASOUND: None. FINDINGS: There is a single intrauterine fetus. The fetus is in a cephalic presentation. There is demonstrated cardiac activity with a heart rate of 127 bpm. There is a normal amniotic fluid volume. The largest amniotic fluid pocket measures 6.7 cm. The amniotic fluid index (WESLEY) is 14.7 cm. The placenta is anterior in location and is not low lying. There are Grade 2 placental changes. Cervical length was not measured due to the head position. The adnexal regions are not visualized. BIOMETRY: BPD: 9.5 cm: 38 weeks, 5 days HC: 34.4 cm: 39 weeks, 5 days AC: 37.4 cm: 41 weeks, 3 days FL: 7.3 cm: 37 weeks, 3 days CI: 81% FL/BPD: 77% FL/HC: FL/AC: 20% HC/AC: 0.92 age by current US: 39 weeks, 1 days. LATOSHA by current US: 10/19/2022. Estimated weight: 3997 grams, +/- 600 grams, 94 %. Age by LMP: 38 weeks, 3 days. LATOSHA by LMP: 10/24/2022. US/OB Limited With Biometrics IMPRESSION: Single live uterine gestation with a mean gestational age of 39 weeks and 1 day. Electronically Signed: Reji Eastman MD at 10:37 EST ,
== END | disposition home or self-care (01) ==
LOC: OPUS 08:34
PROVIDERS: PCP Registered Nurse; Referring Provider Obstetrics & Gynecology; Visit Provider Obstetrics & Gynecology
DX: O99.280 Endocrine, nutritional and metabolic diseases complicating pregnancy, unspecified trimester (principal); E03.9 Hypothyroidism, unspecified; O99.810 Abnormal glucose complicating pregnancy
CPT/HCPCS: 76816

== ENCOUNTER 2022-10-17 10:15 | Inpatient (IN) | payer MEDICAID, SELFPAY ==
[2022-10-17] VITALS (15 sets, daily range): BP systolic 93–118; BP diastolic 51–69; PULSE 61–94; RESP 16–18; TEMP 35.9–37; O2SAT 96–100; BMI 35.9
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
[2022-10-17] MEDS: Lactated Ringers 1,000 ML 999 ML IV (10:40)
[2022-10-17 10:54] LABS: Absolute Lymphocyte Count 1.31 X10^3/uL (0.83-4.51); Absolute Neutrophil Count 5.7 X10^3/uL (2.0-7.7); Basophil# 0.01 X10^3/uL; Basophil% 0.1 % (0-1); Eosinophil# 0.08 X10^3/uL; Eosinophils% 1.1 % (0-5); Hematocrit 30.2 % (37-47); Hemoglobin 9.7 g/dL (12.0-15.0); Lymphocyte # 1.31 X10^3/ul (0.83-4.51); Lymphocyte % 17.4 % (19-41); Mean Corp Hgb Conc 32.1 g/dL (32-36); Mean Platelet Vol. 10.5 fl (6.2-12.0); Monocyte# 0.37 X10^3/uL; Monocyte% 4.9 % (0-10); NRBC Flagged by Analyzer 0 % (0-5); Neutrophil # 5.69 X10^3/uL (2.7-7.7); Neutrophil % 75.7 % (47-70); Platelet Count 214 K/mm3 (150-450); Red Blood Count 3.73 M/mm3 (4.2-5.4); White Blood Count 7.5 K/mm3 (4.4-11.0)
[2022-10-17] MEDS: Lactated Ringers 1,000 ML 150 ML IV (11:27)
[2022-10-17] MEDS: Acetaminophen 500 MG Tablet 1000 MG PO ×3 (11:32→23:56)
[2022-10-17] MEDS: Sodium Citrate/Citric Acid 30 ML UDC PO (11:44)
[2022-10-17] MEDS: Cefazolin 2 GM in 0.9% Normal Saline 100 ML IV (11:50)
--- NOTE | 2022-10-17 12:43 | OP.PCM_ITS ---
Assessment & Plan (1) Supervision of normal : COMMENT: PRR LATOSHA 10/24/22 corby DUDLEY Quoc Boyfriend-Gio (2) : QUALIFIERS: Weeks of gestation: 38 weeks Qualified Code(s): Z3A.38 - 38 weeks gestation of COMMENT: GBS Negative, anatomy nl, repeat growth 08/03 1231g 54%, NIPT low risk (3) Anemia affecting : COMMENT: Currently taking iron, repeat CBC 4 wks (4) History of section: COMMENT: chance of success is only 7.5%, plan repeat 39 week c- section. RLTCS scheduled for 10/17 @ 12 with JV (5) Obesity affecting : (6) Abnormal glucose affecting : COMMENT: needs 3 hr GTT. 08/08/22 nl 3 hr gtt (7) Hypothyroidism affecting : COMMENT: synthroid, tsh q trimester, WNL Maternal Data Information LATOSHA Calculator Estimated Delivery Date Method Current WG Current Estimate 10/24/22 LMP (Certain) 39w 0d Final LATOSHA: 10/24/22 Final LATOSHA Source: LMP Gestational age: 39 weeks 0 days Details Operative Information Date of Procedure: 10/17/22 Pre-Operative Diagnosis: @ 39 weeks 0 days, prior section, declines , gestational diabetes Post-Operative Diagnosis: @ 39 weeks 0 days, prior section, de clines , gestational diabetes Indications for : Repeat Elective Classification: Scheduled Procedure Type: low transverse asset protection agent #1: Jillian Sol Type of Anesthesia: Spinal Antibiotic Given: Ancef 2 grams IV x1 Drain: Mata to straight drain Estimated Blood Loss: 700cc Findings Description of Procedure: The patient is a 27 y/o @ 39 weeks gestation who presented for repeat C- section. Spinal anesthesia was placed without difficulty. Mata catheter was placed. The patient was placed in the dorsal supine position with leftward tilt. Patient was prepped and draped in the normal sterile fashion. Pfannenstiel skin incision was made with the scalpel and carried through to the underlying layer of fascia with the scalpel. Fascia was nicked in the midline and the incision extended laterally. The rectus bellies were dissected off superiorly and inferiorly with out complication both sharply and bluntly. The peritoneum was entered digitally. The incision was stretched and a low transverse uterine incision was made with the scalpel. The 's head was delivered atraumatically followed by the anterior and posterior shoulders without complication the rest of the infant delivered. The cord was clamped and cut and the infant was handed off to awaiting nurse. The placenta was delivered spontaneously immediately following and was noted to be intact and have a three- vessel cord. The uterus was exteriorized cleared of all clots and debris, and the incision was closed in a double layer closure using #1 vicryl and #1 Monocryl. The ovaries and fallopian tubes were noted to be within normal limits. The uterus was returned to the maternal abdomen and gutters were cleared of all clots and debris. The peritoneum was closed with 3-0 Monocryl in a running fashion. Gloves were changed prior to fascial closure. Fascia was closed with 0 PDS in a running fashion. Subcutaneous tissue was copiously irrigated and the skin was closed with 3-0 Monocryl in a subcuticular fashion. Mepilex dressing was applied without complication. Patient was taken to recovery in stable condition. It was discussed with the patient that based on the clinical information obtained during this encounter, combined with her history, at this time I would recommend repeat section or per anthony ent request for future deliveries if further pregnancies are desired. Presentation: Positive for Vertex Amniotic Membrane Rupture Type: Artificial Amniotic Fluid Description: Clear Placental Delivery Description: Manual Removal Placenta Disposition: [facility] Cord Vessel Description: 3 Vessels Cord Entanglement: None Infant A Gender: Male (1 minute): 8 (5 minute): 9 Delayed Cord Clamping: Yes Complications Risks of Surgery Discussed w/Patient: Bleeding, Anesthesia Risks, Infection, Need for Future C-Sections and Injury to surrounding structure(s) including bowel and bladder Multi Select Codes Urinary/Genital Urinary/Genital CPT Codes: 10537 delivery+PP Care([facility])
[2022-10-17] MEDS: Oxytocin 15 Units/NS 250ml 15 UNITS/250 ML IV.SOLN 83 UNITS IV (13:20)
[2022-10-17] MEDS: Ketorolac 30 MG/ML Syringe IV ×2 (13:57→20:34)
[2022-10-17] MEDS: Methylergonovine 0.2 MG/ML Ampul IM (14:08)
[2022-10-17] MEDS: LACTATED RINGERS 500 ML 999 ML IV (14:48)
[2022-10-17 14:54] LABS: Hematocrit 29.9 % (37-47); Hemoglobin 9.9 g/dL (12.0-15.0); Mean Corp Hgb Conc 33.1 g/dL (32-36); Mean Corpuscular Hgb 26.6 pg (27.0-32.0); Mean Corpuscular Volume 80.4 fL (81-99); Mean Platelet Vol. 10.5 fl (6.2-12.0); Platelet Count 210 K/mm3 (150-450); RBC Distribution Width SD 38.2 fl (35.1-43.9); Red Blood Count 3.72 M/mm3 (4.2-5.4); White Blood Count 9.4 K/mm3 (4.4-11.0)
[2022-10-17] MEDS: Lactated Ringers 1,000 ML 100 ML IV (15:18)
[2022-10-18] MEDS: Ketorolac 30 MG/ML Syringe IV ×2 (02:28→08:03)
[2022-10-18] MEDS: 0.9% Saline Lock 10 ML Syringe IV ×2 (02:29→08:04)
[2022-10-18 04:30] VITALS: BP 92/53; PULSE 73; RESP 16; TEMP 36.8; O2SAT 97
[2022-10-18 04:56] LABS: Hematocrit 28.9 % (37-47); Hemoglobin 9.1 g/dL (12.0-15.0); Mean Corp Hgb Conc 31.5 g/dL (32-36); Mean Corpuscular Hgb 25.6 pg (27.0-32.0); Mean Corpuscular Volume 81.4 fL (81-99); Mean Platelet Vol. 10.4 fl (6.2-12.0); Platelet Count 195 K/mm3 (150-450); RBC Distribution Width SD 38.7 fl (35.1-43.9); Red Blood Count 3.55 M/mm3 (4.2-5.4); White Blood Count 8.7 K/mm3 (4.4-11.0)
[2022-10-18] MEDS: Acetaminophen 500 MG Tablet 1000 MG PO ×2 (06:17→12:24)
[2022-10-18 08:10] VITALS: BP 102/61; PULSE 95; RESP 16; TEMP 36.2; O2SAT 96
[2022-10-18] MEDS: Senna/Docusate Sodium 1 Tablet PO (09:45)
--- NOTE | 2022-10-18 10:02 | PN.OBGYN_ITS ---
Subjective Subjective Patient doing well without complaints. Tolerating PO. Ambulating and voiding without difficulty. Feeding well. Denies chest pain, shortness of breath, calf pain/swelling, fevers, chills, lightheadedness. Objective Data Objective Data Vital Signs: Vital Signs Temp Pulse Resp BP Pulse Ox O2 Del Method 97.2 F L 95 16 102/61 96 Room Air 10/18/22 08:10 10/18/22 08:10 10/18/22 08:10 10/18/22 08:10 10/18/22 08:10 10/18/22 08:10 Oxygen Delivery Method Room Air Weight: 196 lb 3.382 oz Body Mass Index (BMI) 35.9 Intake & Output: Intake and Output for Last 24 Hours 10/16/22 10/17/22 10/18/22 23:59 23:59 23:59 Intake Total 2639.17 / 2639.17 Output Total 2100 / 2100 1250 / 1250 Balance 539.17 / 539.17 -1250 / -1250 Lab / Micro Data Result Diagrams: 10/18/22 04:43 Labs: Laboratory Results - last 24 hr 10/17/22 10:40: WBC 7.5, RBC 3.73 L, Hgb 9.7 L, Hct 30.2 L, MCV 81.0, MCH 26.0 L , MCHC 32.1, RDW Std Deviation 38.0, RDW Coeff of [place] 13.0, Plt Count 214, MPV 10.5, Immature Gran % (Auto) 0.800, Neut % (Auto) 75.7 H, Lymph % (Auto) 17.4 L, Crisp % (Auto) 4.9, Eos % (Auto) 1.1, Baso % (Auto) 0.1, Absolute Neuts (auto) 5.7, Absolute Lymphs (auto) 1.31, Nucleated RBC % 0 10/17/22 10:40: Blood Type O POSITIVE, Antibody Screen NEGATIVE 10/17/22 14:44: WBC 9.4, RBC 3.72 L, Hgb 9.9 L, Hct 29.9 L, MCV 80.4 L, MCH 26.6 L, MCHC 33.1, RDW Std Deviation 38.2, RDW Coeff of [place] 13.0, Plt Count 210, MPV 10.5 10/18/22 04:43: WBC 8.7, RBC 3.55 L, Hgb 9.1 L, Hct 28.9 L, MCV 81.4, MCH 25.6 L , MCHC 31.5 L, RDW Std Deviation 38.7, RDW Coeff of [place] 13.0, Plt Count 195, MPV 10.4 Physical Exam Const alert, oriented x3 and no apparent distress HEENT normocephalic Eyes PERRL Neck full ROM Lymph Lymphatic: no lymphadenopathy noted Resp normal respiratory effort, normal air movement and no retractions Cardio regular rate and regular rhythm GI normal to inspection, nondistended, normoactive bowel sounds GI Narrative: fundus firm at u,small lochia. dressing CDI Extremity normal to inspection Skin no rashes or lesions noted Psych mental status grossly normal Assessment & Plan (1) History of section: COMMENT: chance of success is only 7.5%, plan repeat 39 week c- section. RLTCS scheduled for 10/17 @ 12 with JV PLAN: normal c/s course. pt requesting early discharge. (2) Hypothyroidism affecting : COMMENT: synthroid, tsh q trimester, WNL PLAN: Plan s/p LTCS PPD # 1 1. routine post care 2. breast feeding- support given 3. rh positive 4. rubella immune 5. d/c home this evening
--- NOTE | 2022-10-18 10:09 | DCINST_ITS ---
Discharge Instructions Diet Discharge Diet: No restrictions Activity Discharge Activity: May Not Drive (2 weeks) and May Shower May resume sexual activity in: 6-8 weeks (after 6 week visit) Dressing / Incision Call your doctor if your incision/area has: Continuous Slow Oozing, Sudden Increased Bleeding, Increased Pain/ Swelling, Increased Redness, Foul Smelling Discharge and Swelling at the incision site Call your doctor if you observe: Fever of 101 or Higher, Change in Color, Inability to urinate, Using more than 1 pad per hour, Shortness of breath, Dizziness, Fainting spells, Chest pain, Increased palpitations (irregular heartbeat) and Calf discomfort Remove Dressing in: leave until fall off (or until 2 weeks) Follow Up Care When: 2 weeks for incision check and 6 weeks for routine visit Test Results: Test results from this visit will be discussed in further detail at your follow- up appointment, if applicable. Discharge Plan Admission Admit Date/Time: 10/17/22 10:15 Attending Provider: Tessa Webber Primary Care Provider: Janey Oglesby NP Discharge Orders/Prescriptions Prescriptions: New ibuprofen 600 mg Tablet 600 mg PO Q6H Qty: 0 0RF oxycodone 5 mg Tablet 5 - 10 mg PO Q4H PRN PRN (Reason: Pain Score 4-10) Qty: 0 0RF No Action #2 Tablet 1 tab PO DAILY levothyroxine 88 mcg tablet 88 mcg PO DAILY Referrals / Follow Up: Janey Oglesby NP, [employer] [Primary Care Provider] - Disposition Disposition (needs filled in before D/C Order can be placed): Home, Self Care
[2022-10-18 12:25] VITALS: BP 97/51; PULSE 92; RESP 16; TEMP 36.7; O2SAT 97
[2022-10-18] MEDS: Ibuprofen 600 MG Tablet PO (14:15)
[2022-10-18 15:58] VITALS: BP 106/77; PULSE 92; RESP 16; TEMP 36.2; O2SAT 97
--- NOTE | 2022-10-18 16:22 | NURSING ---
This RN educated patient on Fenugreek and hypothyroidism. Educated patient on how intake of fenugreek can affect their thyroid and effectiveness of their thyroid medication. Informed patient that this herb can be found in supplements and to look out for ingredients before consumption.
== END 2022-10-18 17:05 | disposition home or self-care (01) | DRG 540 ==
PROVIDERS: Admitting Provider Obstetrics & Gynecology; PCP Registered Nurse; Referring Provider Obstetrics & Gynecology; Visit Provider Obstetrics & Gynecology
PROC: 10D00Z1 Extraction of Products of Conception, Low, Open Approach (ICD-10-PCS; CPT 59514; principal; 2022-10-17 11:45)
DX: O34.219 Maternal care for unspecified type scar from previous cesarean delivery (principal); O24.420 Gestational diabetes mellitus in childbirth, diet controlled; D64.9 Anemia, unspecified; E03.9 Hypothyroidism, unspecified; N83.201 Unspecified ovarian cyst, right side; Z37.0 Single live birth; N83.202 Unspecified ovarian cyst, left side; Z3A.39 39 weeks gestation of pregnancy; Z87.891 Personal history of nicotine dependence; O99.02 Anemia complicating childbirth; O99.284 Endocrine, nutritional and metabolic diseases complicating childbirth; O99.893 Other specified diseases and conditions complicating puerperium
CPT/HCPCS: 59050; 85025; 85027; 86850; 86900; 86901; 99221; J7120; A4216; G0378

== ENCOUNTER → 2023-01-18 | Outpatient (CLI) | payer MEDICAID, SELFPAY ==
[2023-01-18 11:09] LABS: Thyroid Stim Hormone (TSH) < 0.01 uIU/mL (0.358-3.74)
== END | disposition home or self-care (01) ==
LOC: PAVLAB 09:53
PROVIDERS: PCP Registered Nurse; Referring Provider Internal Medicine Endocrinology, Diabetes & Metabolism; Visit Provider Internal Medicine Endocrinology, Diabetes & Metabolism
DX: O99.280 Endocrine, nutritional and metabolic diseases complicating pregnancy, unspecified trimester (principal); E03.9 Hypothyroidism, unspecified; Z3A.00 Weeks of gestation of pregnancy not specified
CPT/HCPCS: 36415; 84439; 84443

== ENCOUNTER → 2023-05-09 | Outpatient (CLI) | payer OTHER, MEDICAID, SELFPAY ==
[2023-05-09 17:44] LABS: T4 Free Direct 0.98 ng/dL (0.76-1.46); Thyroid Stim Hormone (TSH) 3.67 uIU/mL (0.358-3.74)
== END | disposition home or self-care (01) ==
LOC: LAB 16:05
PROVIDERS: PCP Registered Nurse; Referring Provider Nurse Practitioner Family; Visit Provider Nurse Practitioner Family
DX: E06.3 Autoimmune thyroiditis (principal)
CPT/HCPCS: 36415; 84439; 84443

== ENCOUNTER → 2023-11-13 | Outpatient (CLI) | payer OTHER, SELFPAY ==
[2023-11-13 11:48] LABS: T4 Free Direct 0.95 ng/dL (0.76-1.46); Thyroid Stim Hormone (TSH) 2.62 uIU/mL (0.358-3.74)
== END | disposition home or self-care (01) ==
PROVIDERS: PCP Registered Nurse; Referring Provider Internal Medicine Endocrinology, Diabetes & Metabolism; Visit Provider Internal Medicine Endocrinology, Diabetes & Metabolism
DX: E06.3 Autoimmune thyroiditis (principal)
CPT/HCPCS: 36415; 84439; 84443

== ENCOUNTER → 2024-12-18 | Outpatient (CLI) | payer OTHER, SELFPAY ==
[2024-12-18 15:11] LABS: ALB/GLOB Ratio 1.4 RATIO (0.9-2.4); AST(SGOT) 21 U/L (<=31); Alanine Aminotransfer ALT/SGPT 18 U/L (<=34); Albumin, Serum 4.5 g/dL (3.5-5.0); Alkaline Phosphatase 61 U/L (35-104); Anion Gap 12 (5-15); BUN 11 mg/dL (4-19); BUN/Creat Ratio 15.4 RATIO (10-20); Calcium,Total 9.3 mg/dL (7.6-11.0); Chloride 104 mmol/L (98-108); Creatinine, Serum 0.72 mg/dL (0.70-1.20); EST Glomerular Filtration Rate 115 (>60); Globulin 3.2 g/dL (2.2-4.2); Glucose 89 mg/dL (70-99); Potassium 3.8 mmol/L (3.3-5.1); Protein, Total 7.8 g/dL (5.9-8.4); Sodium Level 138 mmol/L (133-145); Total Bilirubin 0.37 mg/dL (0.00-1.30)
[2024-12-18 22:00] LABS: Xtra Tube EP Lab EXTRA TUBE
== END | disposition home or self-care (01) ==
PROVIDERS: PCP Registered Nurse; Referring Provider Internal Medicine Endocrinology, Diabetes & Metabolism; Visit Provider Internal Medicine Endocrinology, Diabetes & Metabolism
DX: E06.3 Autoimmune thyroiditis (principal)
CPT/HCPCS: 36415; 80053; 84439; 84443